=== PATIENT | male | born 1960 | race Caucasian/White ===

== ENCOUNTER 2018-04-16 11:00 | Emergency (ER) | payer SELFPAY ==
[2018-04-16] MEDS: METHYLPREDNISOLONE 125 MG INJ IM (11:38)
[2018-04-16] MEDS: HYDROCODONE/APAP (10/325) TAB PO (11:39)
[2018-04-16] MEDS: NAPROXEN 500 MG TAB PO (11:48)
== END 2018-04-16 11:54 | disposition home or self-care (01) ==
LOC: FTE 11:00
DX: M54.41 Lumbago with sciatica, right side (principal); G89.29 Other chronic pain; I10 Essential (primary) hypertension; J44.9 Chronic obstructive pulmonary disease, unspecified
CPT/HCPCS: 96372; 99284-25; J2930